=== PATIENT | female | born 1985 | race African-American/Black ===

== ENCOUNTER 2021-04-02 11:51 | Emergency (ER) | payer OTHER ==
[2021-04-02 12:08] VITALS: BMI 25.7
[2021-04-02] MEDS ORDERED: LIDOCAINE 5% TOPICAL PATCH TP ONE (12:42)
[2021-04-02] MEDS ORDERED: ACETAMINOPHEN 500 MG TABLET (FP) PO ONE (12:42)
[2021-04-02] MEDS ORDERED: ACETAMINOPHEN 325 MG TABLET (FP) ONE (13:11)
[2021-04-02] MEDS ORDERED: LIDOCAINE 5% TOPICAL PATCH ONE (13:11)
[2021-04-02 15:03] VITALS: BP 100/66; PULSE 113; TEMP 98.2
[2021-04-02] MEDS ORDERED: DEXTROSE 5%-LACTATED RINGERS 500 ML IV SCH ×2 (15:15→16:15)
[2021-04-02] MEDS ORDERED: LIDOCAINE PATCH REMOVAL MC ONE (22:00)
== END 2021-04-02 17:08 | disposition home or self-care (01) ==
LOC: JER 11:51
PROC: 3E033GC Introduction of Other Therapeutic Substance into Peripheral Vein, Percutaneous Approach (ICD-10-PCS; principal; 2021-04-02)
PROC: 3E033GC Introduction of Other Therapeutic Substance into Peripheral Vein, Percutaneous Approach (ICD-10-PCS; 2021-04-02)
DX: O99.891 Other specified diseases and conditions complicating pregnancy (principal); M54.50 Low back pain, unspecified; R11.10 Vomiting, unspecified; Z3A.28 28 weeks gestation of pregnancy
CPT/HCPCS: 99284-25

== ENCOUNTER 2021-04-12 14:40 | Emergency (ER) | payer OTHER ==
[2021-04-12 14:47] VITALS: BP 122/72; PULSE 99; TEMP 97.4; BMI 27.4
[2021-04-13 14:12] LABS: SARS-CoV-2 NAA Detected (Not Detected)
== END 2021-04-12 16:13 | disposition home or self-care (01) ==
LOC: JER 14:40
DX: O98.513 Other viral diseases complicating pregnancy, third trimester (principal); U07.1 COVID-19; Z34.90 Encounter for supervision of normal pregnancy, unspecified, unspecified trimester
CPT/HCPCS: 87804; 99283-25; C9803; U0003; U0005

== ENCOUNTER 2021-06-22 12:07 | Inpatient (IN) | payer OTHER ==
[2021-06-22] MEDS ORDERED: BUTORPHANOL TARTRATE 1 MG/ML VIAL IVPB PRN (20:21)
[2021-06-22] MEDS ORDERED: DINOPROSTONE 10 MG VAGINAL SUPPOSITORY VG ONE (20:21)
[2021-06-22] MEDS: ELECTROLYTE-148 SOLN 1,000 ML IV SCH (20:30)
[2021-06-22 20:31] VITALS: BMI 29.2
[2021-06-22 20:35] LABS: BASO % 0.5 % (0-2.0); EOS % 0.8 % (0-4.5); HEMATOCRIT 32.7 % (32.4-45.2); HEMOGLOBIN 11.2 GM/dL (10.7-15.3); LYMPH % 19.2 % (8-40); MCH 31.6 pg (25.7-33.7); MCHC 34.1 g/dl (32.0-36.0); MEAN CELL VOLUME 92.6 fl (80-96); MEAN PLT VOLUME 9.6 fl (7.5-11.1); MONO % 7.6 % (3.8-10.2); NEUT % 71.9 % (42.8-82.8); PLATELET COUNT 163 10^3/uL (134-434); RBC 3.53 M/mm3 (3.60-5.2); RDW 14.6 % (11.6-15.6); WHITE BLOOD COUNT 6.4 K/mm3 (4.0-10.0)
[2021-06-22 20:42] LABS: INR 0.92 (0.83-1.09); PROTHROMBIN TIME (PATIENT) 10.6 SEC (9.7-13.0)
[2021-06-22 20:45] LABS: ACTIVATED PTT 28.7 SECONDS (25.2-36.5)
[2021-06-22 21:04] LABS: CALCIUM 8.6 mg/dL (8.5-10.1)
[2021-06-22 21:05] LABS: BLOOD UREA NITROGEN 3.8 mg/dL (7-18)
[2021-06-22 21:08] LABS: CREATININE 0.7 mg/dL (0.55-1.3)
[2021-06-22 21:30] LABS: SYPHILIS W/ RPR CONF NON-REACTIVE (NONREACTIVE)
[2021-06-22 21:59] LABS: HIV INTERPRETATION NEGATIVE (NEGATIVE)
[2021-06-23] MEDS ORDERED: LIDOCAINE HCL 1% PRESERVATIVE FREE - 30ML VIAL ONE (00:38)
[2021-06-23] MEDS ORDERED: OXYTOCIN 20 UNITS in 0.9% NS 20 UNIT/1,000 ML INFUS.BAG IV ONE (00:38)
[2021-06-23] MEDS ORDERED: METHYLERGONOVINE MALEATE 0.2 MG/1 ML AMP IM PRN (01:04)
[2021-06-23] MEDS ORDERED: oxyCODONE HCL 5 MG TABLET PO PRN (01:04)
[2021-06-23] MEDS ORDERED: BENZOCAINE 20% 57 GM BOTTLE TP PRN (01:04)
[2021-06-23] MEDS ORDERED: BENZOCAINE 28 GM HEMORRHOIDAL OINTMENT TP PRN (01:04)
[2021-06-23] MEDS ORDERED: ACETAMINOPHEN 325 MG TABLET (FP) PO PRN (01:04)
[2021-06-23] MEDS ORDERED: WITCH HAZEL 50% (TUCKS) 40 PAD/JAR PAD TP PRN (01:04)
[2021-06-23] MEDS ORDERED: BISACODYL 10 MG SUPP.RECT RC PRN (01:04)
[2021-06-23] MEDS ORDERED: OXYTOCIN 20 UNITS in 0.9% NS 20 UNIT/1,000 ML INFUS.BAG IV SCH (01:15)
[2021-06-23 02:07] LABS: CORD BASE EXCESS -4.8 mmol/L (0-2); CORD HCO3 21.5 mmHg (20-29); CORD pH 7.307 (7.14-7.44)
[2021-06-23] MEDS: FERROUS SO4 325 MG TABLET (FP) PO SCH ×3 (09:56→17:16)
[2021-06-23] MEDS: PRENATAL VITAMINS W/ FOLIC ACID TABLET (FP) PO SCH (09:56)
[2021-06-23] MEDS ORDERED: DIPHTH,PERTUSS(ACELL),TET 0.5 ML DISP.SYRIN IM ONE (10:00)
[2021-06-23] MEDS: IBUPROFEN 600 MG TABLET (FP) PO PRN (14:45)
[2021-06-24 07:08] LABS: BASO % 0.4 % (0-2.0); EOS % 1.6 % (0-4.5); HEMATOCRIT 29.9 % (32.4-45.2); HEMOGLOBIN 10.3 GM/dL (10.7-15.3); LYMPH % 26.5 % (8-40); MCHC 34.5 g/dl (32.0-36.0); MEAN PLT VOLUME 9.4 fl (7.5-11.1); MONO % 6.8 % (3.8-10.2); NEUT % 64.7 % (42.8-82.8); PLATELET COUNT 153 10^3/uL (134-434); RBC 3.22 M/mm3 (3.60-5.2); RDW 15.1 % (11.6-15.6); WHITE BLOOD COUNT 6.6 K/mm3 (4.0-10.0)
[2021-06-24] MEDS: FERROUS SO4 325 MG TABLET (FP) PO SCH ×3 (08:05→17:21)
[2021-06-24] MEDS: IBUPROFEN 600 MG TABLET (FP) PO PRN ×2 (08:05→18:35)
[2021-06-24] MEDS: PRENATAL VITAMINS W/ FOLIC ACID TABLET (FP) PO SCH (10:51)
[2021-06-24 11:10] LABS: SARS-CoV-2 NAA Not Detected (Not Detected)
[2021-06-24 21:11] VITALS: BP 103/63; TEMP 98.4
[2021-06-24] MEDS: ELECTROLYTE-148 SOLN 1,000 ML IV SCH (21:13)
[2021-06-24] MEDS ORDERED: SENNOSIDES/DOCUSATE COMBO (SENNA PLUS) TABLET (UD) PO PRN (22:00)
[2021-06-25] MEDS: IBUPROFEN 600 MG TABLET (FP) PO PRN (09:28)
[2021-06-25] MEDS: FERROUS SO4 325 MG TABLET (FP) PO SCH ×2 (09:28→13:03)
[2021-06-25] MEDS: PRENATAL VITAMINS W/ FOLIC ACID TABLET (FP) PO SCH (09:28)
[2021-06-25 10:06] VITALS: PULSE 92
== END 2021-06-25 13:45 | disposition home or self-care (01) | DRG 560 ==
LOC: JDEL 12:07 → JLDR 19:00 → J3W 06-23 03:00
PROVIDERS: ADMIT Obstetrics & Gynecology; ATTEND Obstetrics & Gynecology
PROC: 10E0XZZ Delivery of Products of Conception, External Approach (ICD-10-PCS; principal; 2021-06-23)
PROC: 0HQ9XZZ Repair Perineum Skin, External Approach (ICD-10-PCS; 2021-06-23)
PROC: 0W8NXZZ Division of Female Perineum, External Approach (ICD-10-PCS; 2021-06-23)
DX: O48.0 Post-term pregnancy (principal); O70.0 First degree perineal laceration during delivery; Z3A.41 41 weeks gestation of pregnancy; Z37.0 Single live birth
CPT/HCPCS: 36415; 36600; 59025; 59409; 80048; 82803; 85025; 85610; 85730; 86780; 86850; 86900; 86901; 87389; 90715; C9803; U0003; U0005